=== PATIENT | male | born 1985 | race Caucasian/White ===

== ENCOUNTER 2018-11-21 12:40 | Emergency (ER) | payer BC, MEDICAID ==
[~2018-11-21] VITALS: Ht 177.8 cm; Wt 76.7 kg
[~2018-11-21 12:40] MED LIST: HYDR453.3 TP
[2018-11-21] MEDS ORDERED: PRED20TA PO (12:52)
--- NOTE | 2018-11-21 12:54 | NUR ---
PT IS IN ROOM #1B. DR GRAHAM EVALUATED THE PT.
[2018-11-21] MEDS ORDERED: ACETAMINOPHEN ES 500 MG TABLET ONE (13:13)
[2018-11-21] MEDS ORDERED: ACETAMINOPHEN 160 MG/5 ML UDC PO ONE (13:15)
[2018-11-21 13:24] LABS: BASOPHILS # (AUTO) 0.1 K/uL (0.0-8.0); BASOPHILS % (AUTO) 0.4 % (0.0-2.0); EOSINOPHILS # (AUTO) 0.2 K/uL (0.0-0.7); EOSINOPHILS % (AUTO) 1.8 % (0.0-7.0); HEMOGLOBIN 11.5 g/dL (12.5-16.3); LYMPHOCYTES # (AUTO) 2.5 K/uL (20.0-40.0); LYMPHOCYTES % (AUTO) 19.8 % (20.5-51.5); MEAN CORPUSCULAR HEMOGLOBIN 27.4 uug (23.8-33.4); MEAN CORPUSCULAR HGB CONC 33 g/dL (32.5-36.3); MEAN CORPUSCULAR VOLUME 83.2 fL (73.0-96.2); MONOCYTES # (AUTO) 1.2 K/uL (2.0-10.0); MONOCYTES % (AUTO) 9.4 % (0.0-11.0); NEUTROPHILS # (AUTO) 8.5 K/uL (1.8-8.9); NEUTROPHILS % (AUTO) 68.6 % (38.5-71.5); PLATELET COUNT (AUTO) 500 K/uL (152-348); RED BLOOD CELL COUNT(AUTO) 4.21 MIL/uL (4.06-5.63); WHITE BLOOD COUNT (AUTO) 12.4 K/uL (3.6-10.2)
[2018-11-21 13:32] LABS: CREATININE 1.1 mg/dL (0.6-1.3); POTASSIUM 3.4 mmol/L (3.5-5.1)
--- NOTE | 2018-11-21 14:29 | NUR ---
PT WAS D/C'd TO HOME. D/C INSTRUCTIONS GIVEN TO THE PT.
[2018-11-21 14:31] VITALS: BP 142/82
== END 2018-11-21 14:32 | disposition home or self-care (01) ==
LOC: ER 12:40
DX: R00.2 Palpitations (principal); Z79.899 Other long term (current) drug therapy
CPT/HCPCS: 36415; 85025; 87400; 93005; A4663; A9150